=== PATIENT | female | born 1975 | race African-American/Black ===

== ENCOUNTER 2016-11-27 08:24 | Outpatient (CLI) | payer OTHER ==
--- NOTE | 2016-11-27 11:04 | MRI ---
MRI RIGHT SHOULDER WITHOUT CONTRAST: Date: 11/27/16 HISTORY: Fell at work last month. No surgery. COMPARISON: None. FINDINGS: Biceps Tendon: Intraarticular and extraarticular biceps tendon is normal. Visualized Labrum: Intact. No displaced tear. Rotator Cuff: Intact. No displaced tear. Bones: Mild osteoarthritic disease of the acromioclavicular joint. There is a focal contusion of the nalini l head just medial to the footplate of the supraspinatus tendon. Soft Tissues: Trace fluid subacromial/subdeltoid bursa. Muscles: The muscle signal and bulk is normal. IMPRESSION: Contusion of the humeral head just medial to the supraspinatus footplate, likely source of patient's pain. POS: [facility]
== END 2016-11-27 08:25 | disposition home or self-care (01) ==
LOC: MRI 08:24
PROVIDERS: ATTEND Family Medicine
DX: S46.911D Strain of unspecified muscle, fascia and tendon at shoulder and upper arm level, right arm, subsequent encounter (principal); S40.011D Contusion of right shoulder, subsequent encounter